=== PATIENT | female | born 1995 ===

== ENCOUNTER 2024-10-27 16:23 | Inpatient (IN) | payer BC ==
[2024-10-27] MEDS ORDERED: haloperidoL 5 MG TAB PO PRN (16:53)
[2024-10-27] MEDS ORDERED: HALOPERIDOL LACTATE 5 MG/ML 1 ML VIAL IM PRN (16:53)
[2024-10-27] MEDS ORDERED: LORazepam 2 MG/ML INJ IM PRN (16:53)
[2024-10-27] MEDS ORDERED: MAG HYDROX/AL HYDROX/SIMETH 355 ML BOTTLE PO PRN (16:53)
[2024-10-28] MEDS: NICOTINE 14MG/24HR PATCH TRANSDERM SCH (09:05)
[2024-10-28] MEDS: LORazepam 1 MG TAB PO PRN (09:06)
--- NOTE | 2024-10-28 12:20 | P.HP ---
Psychiatric H&P - . H&P Date: 10/28/24 History & Physical: Allergies Allergy/AdvReac Type Severity Reaction Status Date / Time No Known Allergies Allergy Verified 10/27/24 16:52 Vital Signs Temp 97.5 F L 10/28/24 00:59 Pulse 120 H 10/28/24 09:07 Resp 16 10/28/24 00:59 BP 120/86 10/28/24 09:07 Pulse Ox 99 10/28/24 00:59 FiO2 Intake & Output 10/27/24 10/28/24 10/28/24 18:59 06:59 18:59 Weight 100 kg 103.1 kg 10/28/24 12:11 IDENTIFYING DATA: Patient is a 28-year-old female, reportedly employed and living independently CHIEF COMPLAINT: Psychosis, SI with a plan HPI: Patient presented to the hospital with mental health concerns. Per EPS, "Patient packet referred from central intake and accepted by Dr. Brenner. Patient found naked outside at a gas station responding to internal stimuli. Patient also making suicidal statements with plan to run into traffic. Patient has history of bipolar, ADHD, and PTSD. No alcohol or substance use noted. BAL <10 and UDS negative. Patient not currently taking any home medications. Patient RN2RN received from [facility], patient was reportedly making suicidal statements, not redirectable, and agitated requiring a PRN Zyprexa 10MG IM at 0422 and Ativan 2MG PO at 0820. No restraints in ED per RN." Patient seen and evaluated on the unit and was agreeable with speaking to mortgage underwriter in office. She was disorganized, tearful throughout encounter and predominant paranoia. She states she has been fearful of something unknown that ultimately led her to run out of her home and being brought in to the hospital. Patient reports being very fearful, not knowing who to trust and who not to including herself. Patient reports an internal butler of wanting to care for people but unable to, wanting to take medications however fearful to. She displayed racing thoughts. She reports feeling like she is a failure and wants to be happy however does not know how to achieve this goal. Patient displayed a lot of negative self talk about herself, also reporting suicidal ideations, no plan or intent. Patient also reports auditory hallucinations and did appear internally preoccupied at times. Patient is fearful of weight gain with psychotropic medications but was agreeable with starting Latuda. Patient denies any homicidal ideations intent or plan. At this time patient denies any visual hallucinations. Patient denies any flight of ideas racing thoughts and increased in goal directed behavior. Patient admits to using rare alcohol and cannabis. PAST PSYCHIATRIC HISTORY: Patient has a history of psychosis. Patient denies being on any psychiatric medications. She has tried Abilify and Seroquel previously. Patient reports a total of 4 inpatient hospitalizations most recent being a few weeks ago. Patient denies any psychiatric outpatient follow-up. Patient reports 1 previous suicide attempt via strangulation. PMH: as per ER note ALLERGIES: as per EMR SUBSTANCE USE HISTORY: Denies any consistent use FAMILY PSYCHIATRIC/SUBSTANCE USE HISTORY: Denies SOCIAL HISTORY: Patient is single and has no children. She completed college and is employed however would not state where she worked due to paranoia. MENTAL STATUS EXAM: General Appearance: Patient appears to be stated age is alert, directable, and attempts to cooperate. Patient appears to have fair hygiene and grooming. Behavior: Patient is seated without any agitated behavior. She is tearful Speech: Patient's speech is talkative Mood/Affect: Patient reports their mood is "afraid", affect is congruent and constricted. Suicidality/Homicidality: Patient denies having any homicidal ideation intent or plan. Patient reports suicidal ideations, passive in nature Perceptions: Patient denies any visual hallucinations however she does report auditory hallucinations, did appear internally preoccupied at times Though content/process: Patient display disorganization, paranoia Memory and concentration: AOX3, grossly intact for the purposes of this session. Can spell "WORLD" backwards Judgment and insight: Poor STRENGTHS/WEAKNESSES: strength is that patient is resilient and is willing to take medications. Weakness is that patient has poor judgment and is impulsive INTELLECT: Average IMPRESSIONS: Psychosis, unspecified Rule out major depressive disorder with psychotic features versus schizoaffective disorder PLAN: -Patient is admitted under involuntary status to [facility]HU for stabilization of psychiatric symptoms and safety. Patient has not signed adult voluntary form and and is placed in patient's chart. A second certification was completed and along with petition will be filed for court. -Medications : Start Latuda 40 mg twice daily with meals for psychosis -Ativan and Haldol PRN for agitation/aggression -Patient was informed of the risks, benefits and side effects of the medication and patient verbally consented to taking the medications. Patient did not sign med consent form and was placed in chart. Patient offered and declined patient education sheet for antipsychotics. -Internal Medicine consult to perform medical evaluation and physical. -NRT -not needed as patient does not smoke -SW on board for discharge planning. Encourage patient to participate in groups to work on coping skills. Will await deferral and court date.
[2024-10-28] MEDS: ACETAMINOPHEN TAB 325 MG TAB PO PRN (14:21)
[2024-10-28] MEDS: LURASIDONE 40 MG TAB PO SCH (17:54)
--- NOTE | 2024-10-28 21:41 | P.CONS ---
History of Present Illness - Reason for Consult Consult date: 10/28/24 medical co-management - Chief Complaint suicidal ideation - History of Present Illness Joanie is a 28 YO F with no significant past medical history. The patient presents to inpatient behavioral health due to psychosis particularly suicidal ideation with a plan. When speaking to the patient she denies any suicidal ideation upon my evaluation. She denies any history of homicidal ideation. She reports she does not take any medications at home. She denies any history of tobacco use alcohol use but does report that she uses cannabis. She denies taking any medications at home however does report that she has a past medical history significant anxiety/depression. Most recent vital signs are from 09 100 this morning which reveals a heart rate of 120 blood pressure 120/86. There is no lab work on file Review of Systems Pertinent positives and negatives as discussed in HPI, a complete review of systems was performed and all other systems are negative. Medications and Allergies Allergies Allergy/AdvReac Type Severity Reaction Status Date / Time No Known Allergies Allergy Verified 10/27/24 16:52 Physical Exam Vitals: Vital Signs Temp Pulse Resp BP Pulse Ox 10/28/24 09:07 120 H 120/86 10/28/24 00:59 97.5 F L 16 103/73 99 Intake and Output 10/28/24 10/28/24 10/28/24 06:59 14:59 22:59 Other: Weight 103.1 kg General: non toxic, no distress, female appears stated age Derm: warm, dry Head: atraumatic, normocephalic, symmetric Eyes: EOMI, no lid lag, anicteric sclera, ENT: Nose and ears atraumatic, no thrush, no pharyngeal erythema Neck: trachea midline, supple Mouth: no lip lesion, mucus membranes moist Cardiovascular: S1S2 reg, no murmur Lungs: clear to ascultation bilateral Abdominal: soft, nontender to palpation, no guarding, Ext: no gross muscle atrophy Neuro: moving all extremeties spontanously Psych: not making any direct eye contact. calm Assessment and Plan Assessment: #) Psychosis with reported history of SI with a plan. management as per psychiatry team. Currently on latuta 40 mg BID #) Anxiety/depression disorder. management as per psychiatry team #) Cannabis use, recommend cessation. uds pending #) Obeisty, bmi 36.7, weight loss recommended UDS, cbc, cmp, urine bhcg, lipid profile and a1c pending at the time of this writing. Thank you for allowing [facility] to take care of this patient. please do not hesitate to contact us for any concerns. Time with Patient: Greater than 30
[2024-10-29 01:21] LABS: Basophils # (A) 0.07 10*3/uL (0.00-0.10); Basophils % (A) 0.7 %; Eosinophils # (A) 0.12 10*3/uL (0.04-0.35); Eosinophils % (A) 1.1 %; HCT 44.4 % (37.2-46.3); HGB 15.3 g/dL (12.0-15.0); Lymphocytes # (A) 2.89 10*3/uL (0.90-5.00); Lymphocytes % (A) 27.6 %; MCH 32.1 pg (27.0-32.0); MCHC 34.5 g/dL (32.0-37.0); MCV 93.3 fL (80.0-97.0); Mean Platelet Volume 9.9 fL (9.5-12.2); Monocytes # (A) 0.68 10*3/uL (0.20-1.00); Monocytes % (A) 6.5 %; Neutrophils # (A) 6.68 10*3/uL (1.80-7.70); Neutrophils % (A) 63.8 %; Platelet Count 267 10*3/uL (140-440); RBC 4.76 10*6/uL (4.10-5.20); RDW 12.5 % (11.5-14.5); WBC 10.47 10*3/uL (4.50-10.00)
[2024-10-29 01:23] LABS: ALT 61 U/L (4-34); AST 27 U/L (14-36); African American GFR (CKD) >90 (>60 ml/min/1.73 sqM); Alkaline Phosphatase 83 U/L (38-126); Anion Gap 9 mmol/L; Blood Urea Nitrogen 17 mg/dL (7-17); Calcium 9.5 mg/dL (8.4-10.2); Carbon Dioxide 26 mmol/L (22-30); Chloride 101 mmol/L (98-107); Glucose 93 mg/dL (74-99); Non-African American GFR(CKD) >90 (>60 ml/min/1.73 sqM); Potassium 3.9 mmol/L (3.5-5.1); Sodium 136 mmol/L (137-145); Total Bilirubin 0.5 mg/dL (0.2-1.3); Total Protein 6.8 g/dL (6.3-8.2)
--- NOTE | 2024-10-29 11:01 | P.PN ---
Progress Note - Text Progress Note Date: 10/29/24 Dictation was produced using [employer] dictation software. Please excuse any grammatical, word or spelling errors. Interval history: Patient was seen in the hallway and was directable and agreeable to speak with the public relations writer in the office for psychiatric follow-up. The patient states that she has been feeling okay, feeling a bit tired. States that she slept well last night, and admitted to good appetite. States that depression and anxiety are at the moderate side, she rated depression at 4/10, and anxiety at 5-6/10. Denied any current SI/HI or self harm. She denied any current AVH. States that she used to have AVH in the past when she was a teenager. She was able to reflect on the reason for her hospitalization and reported that she was scared and panicky and the last thing she remembered is coming to the hospital. She states that she has been taking her medications, denied any side effects, denied any current muscle stiffness, rigidity, abnormal movement, or drooling. States that she is feeling safe in the unit, getting along with everyone. Patient was encouraged to participate in groups. She seemed to be tired and was closing her eye often. Mental status exam: General Appearance: Patient appears to be stated age is alert, directable, and attempts to cooperate. Patient appears to have fair hygiene and grooming. Behavior: Patient is seated without any agitated behavior. Speech: Patient's speech is talkative however is redirectable Mood/Affect: Patient reports their mood is "okay", affect is congruent and constricted. Suicidality/Homicidality: Patient denies having any homicidal ideation intent or plan. Patient denied any current suicidal ideations Perceptions: Patient denies any visual hallucinations, denied any current auditory hallucinations, seems a little bit paranoid, reported past history of AVH Though content/process: Patient display paranoia Memory and concentration: AOX3, grossly intact for the purposes of this session. Can spell "WORLD" backwards Judgment and insight: Poor Assessment/Plan: Psychosis, unspecified Rule out major depressive disorder with psychotic features versus schizoaffective disorder Continue with current diagnosis. Patient continues to meet criteria for inpatient psychiatric admission for symptom stabilization and safety. Patient will be maintained on current psychotropic medication regimen which include Latuda 40 mg p.o. twice daily which was started yesterday, she has been compliant with her medication, denied any side effects, denied any muscle stiffness, rigidity, abnormal movement, or drooling. Monitor for medication compliance and for any psychotropic medication side effects. Will continue to monitor ongoing response to treatment. Encouraged participation in milieu.
[2024-10-30 07:31] LABS: LDL Cholesterol,Calculated 71.3 mg/dL (0.0-131.0)
--- NOTE | 2024-10-30 09:48 | P.PN ---
Progress Note - Text Progress Note Date: 10/30/24 Dictation was produced using [employer] dictation software. Please excuse any grammatical, word or spelling errors. Interval history: Patient was seen in the hallway and was directable and agreeable to speak with the automobile service writer in the office for psychiatric follow-up. The patient states that she has been feeling okay, reported that she kept waking up last night, states that it was kind of cold in her room, and she did not want to cause any issues with her roommate. States that she is missing her family, states that depression and anxiety are at the moderate side, she rated depression at 3/10, and anxiety at 5/10. She states that it is getting better compared to when she arrived to the hospital. She denied any current SI/HI or self harm, denied any current AVH, reported that she is feeling safe in the unit, getting a long well with everyone in the unit. States that she has been taking her medication, denied any side effects, denied muscle stiffness, rigidity, abnormal movements, or drooling, reported that she feel a little bit tired. She states that she attended the group. States that she is worried about weight gain, and she was educated on the side effects of her medication. States that her mother visited yesterday. Mental status exam: General Appearance: Patient appears to be stated age is alert, directable, and attempts to cooperate. Patient appears to have fair hygiene and grooming. Behavior: Patient is seated without any agitated behavior. Speech: Patient's speech is less talkative, clear, non pressured Mood/Affect: Patient reports their mood is "okay", affect is congruent and constricted. Suicidality/Homicidality: Patient denies having any homicidal ideation intent or plan. Patient denied any current suicidal ideations Perceptions: Patient denies any visual hallucinations, denied any current auditory hallucinations, seems a little bit paranoid, reported past history of AVH Though content/process: Patient display paranoia Memory and concentration: AOX3, grossly intact for the purposes of this session. Can spell "WORLD" backwards Judgment and insight: improving mildly Assessment/Plan: Psychosis, unspecified Rule out major depressive disorder with psychotic features versus schizoaffective disorder Continue with current diagnosis. Patient continues to meet criteria for inpatient psychiatric admission for symptom stabilization and safety. Patient will be maintained on current psychotropic medication regimen which include Latuda 40 mg p.o. twice daily which was started on Thursday, she has been compliant with her medication, denied any side effects, denied any muscle stiffness, rigidity, abnormal movement, or drooling, patient insight has been improving, speech is improving, more logical, thought process is superficially linear and logical. Monitor for medication compliance and for any psychotropic medication side effects. Will continue to monitor ongoing response to treatment. Encouraged participation in milieu.
[2024-10-30] MEDS: IBUPROFEN 600 MG TAB PO PRN (20:22)
[2024-10-31] MEDS: DESVENLAFAXINE SUCCINATE 50 MG TAB.ER.24H PO SCH (11:03)
--- NOTE | 2024-10-31 12:34 | P.PN ---
Progress Note - Text Progress Note Date: 10/31/24 Interval History: Patient was seen in group and was directable and agreeable to speak with service writer in the office. Patient does appear better and that she is more logical and thought however continues to display flight of ideas, racing thoughts. She reports paranoia however this appears less in severity than previous encounters, reporting a fear of being judged. Patient reports baseline she is talkative. She has been attending groups. She continues to struggle with a lot of her internal thoughts regarding her medications, stressors and ultimately being a good person. She mention her parents recently moved to [place] back in March and this has been hard on her as her mother usually handles everything for her. She talked about her recent break-up back in 2022 to her long-term partner of 7 years and how she still struggles with him moving on. She reports she has been increasing her cannabis use recently. At this time patient denies any suicidal or homicidal ideations, intent or plan. Patient denies any auditory, visual hallucinations. Patient denies any side effects from the medications and has been compliant with meds. Mental Status Exam: General Appearance: Patient appears to be stated age is alert, directable, and cooperative. She is wearing a pink outfit with fair grooming and hygiene Behavior: Patient is calmly seated without any agitated behavior. Speech: Patient's speech is fluent and talkative Mood/Affect: Mood is improving mildly, affect is congruent and constricted. Suicidality/Homicidality: Patient denies having any suicidal or homicidal ideation intent or plan. Perceptions: Patient denies any visual hallucinations and denies any auditory hallucinations Though content/process: There is evidence of flight of ideas, paranoia however lessened in intensity Memory and concentration: AOX3, grossly intact for the purposes of this session Judgment and insight: Improving mildly Assessment Psychosis, unspecified Rule out major depressive disorder with psychotic features versus schizoaffective disorder Plan: -Patient continues to meet criteria for inpatient psychiatric admission for symptom stabilization and safety. Patient has not signed adult voluntary form and medication consent and was placed in patient's chart. -Medications: Increase Latuda to 40 mg daily and 80 mg in the afternoon with meals for psychosis, start Pristiq 50 mg daily for depression -When necessary Ativan and Haldol for agitation/aggression. -Labs: WBC mildly elevated otherwise grossly WNL -SW on board for discharge planning. Encouraged the patient to participate in milieu. Currently awaiting deferral with tax attorney and court date.
[2024-10-31] MEDS: LURASIDONE 80 MG TAB PO SCH (18:04)
[2024-10-31] MEDS: MAGNESIUM HYDROXIDE 2,400 MG/30 ML CUP PO PRN (18:05)
[2024-11-01] MEDS: LURASIDONE 40 MG TAB PO SCH (08:57)
[2024-11-01] MEDS: buPROPion XL 150 MG TAB.ER.24H PO SCH (10:12)
--- NOTE | 2024-11-01 11:50 | P.PN ---
Progress Note - Text Progress Note Date: 11/01/24 Interval History: Patient was seen wandering the hallways and was directable and agreeable to sp nick with bond writer in the office. Patient reports feeling tired this morning, states this is related to her narcolepsy. Patient is still exhibiting some slight disorganized thoughts however more lucid than previous encounters. She states speaking to her parents who are supportive. She reports previously doing well on the combination of Wellbutrin and Pristiq with her depression. She has been attending groups. Paranoia has significantly improved however patient does mention still having difficulties with trusting others. At this time patient denies any suicidal or homicidal ideations, intent or plan. Patient denies any auditory, visual hallucinations and denies any delusions. Patient denies any side effects from the medications and has been compliant with meds. Mental Status Exam: General Appearance: Patient appears to be stated age is alert, directable, and cooperative. She is wearing a pink outfit with fair grooming and hygiene Behavior: Patient is calmly seated without any agitated behavior. Speech: Patient's speech is fluent and talkative Mood/Affect: Mood is improving mildly, affect is congruent and constricted. Suicidality/Homicidality: Patient denies having any suicidal or homicidal ideation intent or plan. Perceptions: Patient denies any visual hallucinations and denies any auditory hallucinations Though content/process: There is evidence of mild paranoia, lessening in intensity, some mild disorganization Memory and concentration: AOX3, grossly intact for the purposes of this session Judgment and insight: Improving mildly Assessment Psychosis, unspecified Rule out major depressive disorder with psychotic features versus schizoaffective disorder Plan: -Patient continues to meet criteria for inpatient psychiatric admission for symptom stabilization and safety. Patient has not signed adult voluntary form and medication consent and was placed in patient's chart. -Medications: Start Wellbutrin XL 150 mg daily for depression, continue Pristiq 50 mg daily for depression, Latuda 40 mg daily and 80 mg in the afternoon with meals for psychosis -When necessary Ativan and Haldol for agitation/aggression. -Labs: WBC mildly elevated otherwise grossly WNL -SW on board for discharge planning. Encouraged the patient to participate in milieu. Currently awaiting deferral with defense attorney and court date. Patient to be discharged after signing deferral later this week
[2024-11-01] MEDS: MELATONIN 5 MG TABLET PO PRN (23:48)
[2024-11-01 23:54] VITALS: RESP 16
[2024-11-02 09:24] VITALS: BP 127/83; PULSE 85; TEMP 97.8
--- NOTE | 2024-11-02 13:06 | P.DS ---
Providers Date of admission: 10/28/24 00:29 Expected date of discharge: 11/02/24 Attending physician: Haley Brenner MD Consults: 10/27/24 16:53 Consult Physician Routine Consulting Provider: Radha Luna Consult Reason/Comments: History and Physical, New Admission Do you want consulting provider notified?: Yes Primary care physician: Stated None - Discharge Diagnosis(es) (1) Unspecified psychosis Current Visit: Yes Status: Acute Priority: High Hospital Course: Admission HPI: Admission note was completed by video game script writer "Patient presented to the hospital with mental health concerns. Per EPS, "Patient packet referred from central intake and accepted by Dr. Brenner. Patient found naked outside at a gas station responding to internal stimuli. Patient also making suicidal statements with plan to run into traffic. Patient has history of bipolar, ADHD, and PTSD. No alcohol or substance use noted. BAL <10 and UDS negative. Patient not currently taking any home medications. Patient RN2RN received from [facility], patient was reportedly making suicidal statements, not redirectable, and agitated requiring a PRN Zyprexa 10MG IM at 0422 and Ativan 2MG PO at 0820. No restraints in ED per RN." Patient seen and evaluated on the unit and was agreeable with speaking to video game script writer in office. She was disorganized, tearful throughout encounter and predominant paranoia. She states she has been fearful of something unknown that ultimately led her to run out of her home and being brought in to the hospital. Patient reports being very fearful, not knowing who to trust and who not to including herself. Patient reports an internal butler of wanting to care for people but unable to, wanting to take medications however fearful to. She displayed racing thoughts. She reports feeling like she is a failure and wants to be happy however does not know how to achieve this goal. Patient displayed a lot of negative self talk about herself, also reporting suicidal ideations, no plan or intent. Patient also reports auditory hallucinations and did appear internally preoccupied at times. Patient is fearful of weight gain with psychotropic medications but was agreeable with starting Latuda. Patient denies any homicidal ideations intent or plan. At this time patient denies any visual hallucinations. Patient denies any flight of ideas racing thoughts and increased in goal directed behavior. Patient admits to using rare alcohol and cannabis." Hospital course: Upon admission to the unit patient was initially admitted involuntarily however ended up being directable and agreeable to commence treatment and signed adult voluntary form given her cooperation and adherence to medications.. Patient got along well with other patients on the unit and followed unit protocol. Patient was compliant with the medications and denied any side effects throughout hospital course. Patient was started on Latuda and this was increased to 40 mg daily and 80 mg in the afternoon with meal for psychosis, Wellbutrin XL 150 mg daily for depression, Pristiq 50 mg daily for depression. Patient spoke of her stressors and engaged in therapy both group and individual. Patient was also seen by medical team for history and physical exam. Throughout the course of the hospitalization patient gradually improved with regards to mood, anxiety, sleep and became more future oriented with improved insight and judgment. On the day of discharge patient denied any suicidal or homicidal ideations intent or plan denied any auditory or visual hallucinations. The patient denied any access to guns or weapons. Patient denied any paranoia and did not endorse any delusions. Patient does not have a significant history of substance abuse and was counseled on abstaining from all substances including alcohol and marijuana. Patient was also counseled on the medications and need for regular compliance and was encouraged to follow-up with their outpatient appointment for mental health and also for primary care. Prior to discharge a family meeting will be arranged by social media editor to answer any questions and ensure safety upon discharge including making sure that guns/weapons are either removed from the home or locked away. She is to be discharged back home alone however mother is in town from [place] to monitor patient. She will follow-up with [facility] Mental status exam: General Appearance: Patient appears to be stated age is alert, pleasant, and cooperative. Patient is in no acute distress and has improved hygiene and grooming Behavior: Patient is calmly seated without any agitated behavior. Speech: Patient's speech is fluent and talkative, nonpressured Mood/Affect: Patient reports their mood is "better", affect is congruent and euthymic. Suicidality/Homicidality: Patient denies having any suicidal or homicidal ideation intent or plan. Perceptions: Patient denies any auditory or visual hallucinations. Though content/process: There is no evidence of any delusional thought content and thought process is linear and goal-directed. More future oriented Memory and concentration: AOX3, grossly intact for the purposes of this session. Can spell "WORLD" backwards correctly. Judgment and insight: Fair Impression: Psychosis, unspecified Rule out MDD with psychotic features versus schizoaffective disorder Plan: -Continue with discharge today as patient has improved and stabilized psychiatrically and is not currently an imminent threat to themself and/or others. -Continue medications: Latuda 40 mg daily and 80 mg in the afternoon with meals, Wellbutrin XL 150 mg daily, Pristiq 50 mg daily -Patient was counseled on the need for medication compliance and appropriate follow-up at mental health and also primary care for medical issues. Patient verbalized understanding and agreed. -Social work to help coordinate patients discharge today arrange for and conduct family meeting to ensure safety upon discharge and answer any questions/concerns. also to ensure safe home environment that guns/weapons are either removed from the home or locked away. Social work also to arrange for patients follow up appointments with [facility] for psychiatric care along with follow up with primary care provider. -Patient counseled on abstaining from recreational drugs and marijuana and alcohol. Was informed/educated on the adverse effects on their physical and mental health. Patient verbally agreed and understood. -Patient was instructed to return to the hospital or seek immediate medical care if their psychiatric or medical symptoms do worsen or reoccur. Abnormal Labs 10/29/24 10/29/24 10/29/24 00:26 00:26 10:39 WBC 10.47 H Hgb 15.3 H MCH 32.1 H Sodium 136 L ALT 61 H HDL Cholesterol 72.90 H Allergies Allergy/AdvReac Type Severity Reaction Status Date / Time No Known Allergies Allergy Verified 10/27/24 16:52 Vital Signs Temp 97.8 F 11/02/24 09:00 Pulse 85 11/02/24 09:00 Resp 16 11/02/24 09:00 BP 127/83 11/02/24 09:00 Pulse Ox 99 11/02/24 09:00 FiO2 Patient Condition at Discharge: Stable Plan - Discharge Summary Discharge Rx Participant: No New Discharge Prescriptions: New buPROPion XL [Wellbutrin XL] 150 mg PO DAILY 30 Days #30 tab Lurasidone [Latuda] 40 mg PO 0800 30 Days #30 tab Lurasidone [Latuda] 80 mg PO 1800 30 Days #30 tab Melatonin 5 mg PO HS PRN 30 Days #30 tab PRN Reason: Insomnia Desvenlafaxine Succinate [Pristiq ER] 50 mg PO DAILY 30 Days #30 tab Discharge Medication List Desvenlafaxine Succinate [Pristiq ER] 50 mg PO DAILY 30 Days #30 tab 11/02/24 [Rx] Lurasidone [Latuda] 40 mg PO 0800 30 Days #30 tab 11/02/24 [Rx] Lurasidone [Latuda] 80 mg PO 1800 30 Days #30 tab 11/02/24 [Rx] Melatonin 5 mg PO HS PRN 30 Days #30 tab 11/02/24 [Rx] buPROPion XL [Wellbutrin XL] 150 mg PO DAILY 30 Days #30 tab 11/02/24 [Rx] Follow up Appointment(s)/Referral(s): [facility] [Other] - 11/09/24 3:00 pm [facility] [Other] - 1 Week Patient Instructions/Handouts: Depression (DC), Schizoaffective Disorder (DC) Activity/Diet/Wound Care/Special Instructions: [facility] Discharge Info Avoid the use of street drugs and alcohol. Take all medications as prescribed. When you are in need of refills on your medications, please contact your outpatient medical provider and/or outpatient psychiatrist. Please go to your scheduled outpatient appointments for aftercare treatment. If symptoms return or become worse, call the crisis line at or and/or visit the nearest emergency room for assistance. National Suicide and Crisis Lifeline - call or text 208 Discharge Disposition: HOME SELF-CARE
== END 2024-11-02 14:00 | disposition home or self-care (01) | DRG 885 ==
LOC: UNDOADMIN 21:08 → 3MHU 21:08
PROVIDERS: ADMIT Psychiatry & Neurology Psychiatry; ATTEND Psychiatry & Neurology Psychiatry
DX: F29 Unspecified psychosis not due to a substance or known physiological condition (principal); F32.3 Major depressive disorder, single episode, severe with psychotic features; G47.419 Narcolepsy without cataplexy; R45.851 Suicidal ideations; F43.10 Post-traumatic stress disorder, unspecified; F90.9 Attention-deficit hyperactivity disorder, unspecified type; E66.9 Obesity, unspecified; F41.9 Anxiety disorder, unspecified; Z79.899 Other long term (current) drug therapy; Z68.36 Body mass index [BMI] 36.0-36.9, adult; Z91.51 Personal history of suicidal behavior
CPT/HCPCS: 80053; 80061; 83036; 84443; 85025